=== PATIENT | female | born 1945 | race Caucasian/White ===

== ENCOUNTER 2017-03-27 21:40 | Inpatient (IN) | payer OTHER, BC ==
[~2017-03-27] VITALS: Ht 162.6 cm; Wt 81.6 kg
--- NOTE | ~2017-03-27 | HC ---
[facility] Elizabeth Ba[address] [address] CONSULTATION Name: REMIGIO MONTAGUE Room #: 310-P [facility] IN M.R.#: [id number] Admission: 03/28/17 Attend Phys: Herminio Wood MD Discharge: 03/29/17 Date of : 41 Report #: [id number] THIS REPORT FOR: //name// CC: Zacarias Wood REASON FOR CONSULTATION: End-stage renal disease. REASON FOR PRESENTATION: Shortness of breath. HISTORY OF PRESENT ILLNESS: The patient is a 72-year-old, who was maintained on dialysis with another group. She goes to dialysis every Wednesday, , and Wednesday with Dr. Omalley. She started to have some chest pain before her dialysis session yesterday. She localized the chest pain in the lower aspect of her chest wall. It was described as stabbing. This was associated with shortness of breath. She described that as 10. She tells me that she started on dialysis about 1-1/2 years ago, but she is not really sure, what is the underlying cause of her end-stage renal disease. She also reported that she has some cardiac history, but she is not clear on the details of her cardiac history. She is known to have COPD with a suprapubic catheter. 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 She is also having major issues with hearing on the right side and is maintained on thyroid medications. Looking back on her medical history, it does look like that the patient is diabetic and hypertensive. I am assuming that her kidney issues are related to her diabetes mellitus and hypertension. When she presented to the emergency room yesterday, she was found to have low potassium. She finished her full dialysis treatment. I was asked to manage her end-stage renal disease. MEDICATIONS: 1. Amlodipine. 2. Gabapentin. 3. Aspirin. 4. Simvastatin. 5. Lantus. 6. Levothyroxine. 7. Plavix. 8. Sevelamer. ALLERGIES: Numerous including ASPIRIN, AZTREONAM, CEPHALEXIN, HYDROCHLOROTHIAZIDE, HYDROMORPHONE, LEVOFLOXACIN, PENICILLIN, and SULFA. REVIEW OF SYSTEMS: CONSTITUTIONAL: No fever or chills. PULMONARY: Significant for shortness of breath. CARDIOVASCULAR: Significant for chest pain. GASTROINTESTINAL: No nausea or vomiting. GENITOURINARY: She has a suprapubic catheter. [address] [address] CONSULTATION Name: REMIGIO MONTAGUE Room #: 310-P [facility] IN ..#: [id number] Admission: 03/28/17 Attend Phys: Herminio Wood MD Discharge: 03/29/17 Date of : 41 Report #: [id number] SOCIAL HISTORY: No drug or alcohol abuse. She resides in her own facility. PHYSICAL EXAMINATION: GENERAL: She is alert, oriented, and hard of hearing. VITAL SIGNS: Blood pressure 146/75, respiratory rate 18, pulse rate is 76, temperature 36.6. HEAD AND NECK: No jugular venous distention. No bruit. No thyromegaly. CHEST: Decreased air entry bilaterally with crackles. CARDIOVASCULAR: No rub detected. ABDOMEN: Soft, nontender, with no hepatosplenomegaly. There is a suprapubic catheter. LOWER EXTREMITIES: Trace edema. LABORATORY DATA: Reviewed. Hemoglobin of 9.5. Labs from this morning revealed a sodium of 140, potassium of 2.9, BUN of 8, and creatinine of 2. Her lab values from yesterday showed a potassium of 2.9 and creatinine of 1.8. ASSESSMENT, IMPRESSION, AND PLAN: 1. Presumed end-stage renal disease, even though the values are not consistent with that. She does have very significant urine in her suprapubic catheter. 2. Diabetes mellitus. 3. Hypertension. 4. Hypokalemia. 5. Chest pain. Of unknown sources. 6. Hypothyroidism. PLAN: 1. Holding dialysis for now. 2. Following urine output. 3. We will try to get more details from her dialysis unit about her end-stage renal disease history. 4. She does have low potassium issues, and I will replete accordingly. 5. She received a dialysis treatment yesterday. She does not seem to be in any compromise from the pulmonary status. She uses oxygen at home, and she seems to be at her baseline. <ELECTRONICALLY SIGNED> By: Rodrick Vila MD 03/30/17 0607 0607 1248 Gulshan Montez MD /nt
--- NOTE | ~2017-03-27 | EKG ---
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 : 1945 Requested By: Sergio Caldera Order Number: [id number] MD: Javad Lopez Measurements Intervals [place] Rate: 90 P: 99 CT: 70 QRS: -17 QRSD: 107 T: 170 QT: 400 QTc: 490 Interpretive Statements Sinus rhythm Poor R wave progression Nonspecific ST and T wave abnormality no previous ECGs available for comparison Electronically Signed On 03-28-2017 11:01:23 CDT by Javad Lopez [email or web address] <ELECTRONICALLY SIGNED> By: Javad Lopez MD, [facility] 03/28/17 1101 46 46 Javad Lopez MD, [facility] /EPI
--- NOTE | ~2017-03-27 | 2DMMODE ---
[facility] [address] [employer] [facility] [place] [address] 2 D/M-MODE ECHOCARDIOGRAM Name: MONTAGUEREMIIGO Room #: 310-P [facility] IN ..#: [id number] Admission: 03/28/17 Attend Phys: Herminio Wood, Discharge: Date of : 41 Date of Service: 03/29/17 1109 Report #: [id number] THIS REPORT FOR: //name// APPROVED REPORT Study performed: 03/29/2017 08:33:50 EXAM: Comprehensive 2D, Doppler, and color-flow Echocardiogram Patient Location: Bedside Room #: 310 Other Information Study Quality: Good Indications Congestive Heart Failure COPD Diabetes 2D Dimensions RVDd: 41.93 mm LVEF(%): 27.68 (>50%) IVSd: 14.31 (7-11mm) LVOT Diam: 19.36 (18-24mm) LVDd: 49.36 mm PWd: 12.94 (7-11mm) Ascending Ao: 32.07 (22-36mm) LVDs: 42.99 (25-40mm) Aortic Root: 29.21 mm IVC: 17.00 mm Christina's LVEF: 27.68 % Volumes Left Atrial Volume (Systole) Single Plane 4CH: 68.55 mL Single Plane 2CH: 80.38 mL LA ESV Index: 42.00 mL/m2 Aortic Valve AoV Peak Jimmy.: 1.58 m/s AO Peak Gr.: 9.93 mmHg LVOT Max P.99 mmHg LVOT Max V: 0.86 m/s ESSIE Vmax: 1.61 cm2 Mitral Valve E/A Ratio: 1.2 MV Decel. Time: 156.41 ms MV E Max Jimmy.: 1.46 m/s MV A Jimmy.: 1.24 m/s [facility] [place] [address] 2 D/M-MODE ECHOCARDIOGRAM Name: REMIGIO MONTAGUE Room #: 310-P [facility] IN .R.#: [id number] Admission: 03/28/17 Attend Phys: Herminio Wood, Discharge: Date of : 41 Date of Service: 03/29/17 1109 Report #: [id number] MV PHT: 45.36 ms IVRT: 96.89 ms Pulmonary Valve PV Peak Jimmy.: 1.27 m/s PV Peak Gr.: 6.44 mmHg Pulmonary Vein P Vein S: 0.50 m/s P Vein A: 0.30 m/s P Vein D: 0.50 m/s P Vein A Dur.: 100.3 msec P Vein S/D Ratio: 1.00 Tricuspid Valve TR Peak Jimmy.: 3.61 m/s RAP Estimate: 10.00 mmHg TR Peak Gr.: 52.01 mmHg Left Ventricle The left ventricle is normal size. There is global hypokinesis of the left ventricle. Mild to moderate concentric left ventricular hypertrophy. Left ventricular ejection fraction is moderately mild-moderately reduced. LVEF is 40-45%. Moderate diastolic dysfunction is present (pseudonormal filling). Right Ventricle Right ventricle is dilated. The right ventricular systolic function is normal. Atria Left atrium is dilated. Right atrium is dilated. Aortic Valve Aortic valve is calcified, trileaflet. Trace aortic regurgitation. There is no aortic valvular stenosis. Mitral Valve Mild mitral annular calcification Mild to moderate mitral regurgitation. No evidence of mitral valve stenosis. Tricuspid Valve The tricuspid valve is normal in structure. Mild tricuspid regurgitation. Pulmonic Valve The pulmonary valve is normal in structure. Trace pulmonic regurgitation. [employer] [address] [address] 2 D/M-MODE ECHOCARDIOGRAM Name: REMIGIO MONTAGUE Leatha Room #: 310-P [facility] IN [facility]#: [id number] Admission: 03/28/17 Attend Phys: Herminio Wood, Discharge: Date of : 41 Date of Service: 03/29/17 1109 Report #: [id number] The aortic root is normal in size. IVC is normal in size and collapses <50% with inspiration. Pericardium There is no pericardial effusion. There is no pleural effusion. <Conclusion> Left ventricular ejection fraction is mild-moderately reduced. There is global hypokinesis of the left ventricle.LVEF is 40-45%. Both atria are dilated. Aortic valve is calcified, trileaflet. No aortic valvular stenosis. Mild mitral annular calcification Mild to moderate mitral regurgitation. Pumonary artery pressure of 55mmHg There is no pericardial effusion. <ELECTRONICALLY SIGNED> By: Javad Lopez MD, [facility] 03/29/17 1109 1109 1109 Javad Lopez MD, FACC /INF
--- NOTE | ~2017-03-27 | HC ---
[facility] Elizabeth Ba[address] [place] [address] CONSULTATION Name: REMIGIO MONTAGUE Room #: 310-P ADM IN M.R.#: [id number] Admission: 03/28/17 Attend Phys: Herminio Wood MD Discharge: Date of : 41 Report #: [id number] THIS REPORT FOR: //name// CC: Zacarias Wood DATE OF SERVICE: 03/28/2017 REASON FOR CONSULTATION: Shortness of breath. HISTORY OF PRESENT ILLNESS: The patient is a 72-year-old woman with a history of end-stage renal disease, on hemodialysis. She denies past cardiac history. She was recently discharged from rehabilitation about 6 days ago. Was at the rehabilitation center where she gained 20-30 pounds of fluid. Her daughter signed her out of rehabilitation and since then, efforts have been underway to remove excess fluid. Her daughter tells me that she is down about 8 pounds, but has ways to go. Yesterday, she developed shortness of breath, stabbing-type chest pain and shakiness during dialyisis. Her daughter thinks that she might have had a panic attack. She usually receives her care at [facility] and they were diverted to [facility]. Both the patient and her daughter, Amira Nicole, prefer not to have any specific diagnostic testing done at [place], but rather [facility] due to her long history and all of her records being at this hospital. Serial cardiac enzymes have been normal. She has been told of needing to wear oxygen, although does not do this consistently. There is no history of palpitations, near syncope or syncope. ALLERGIES: She is allergic to FIORINAL, KEFLEX, HYDROCHLOROTHIAZIDE, DILAUDID, LEVAQUIN, PENICILLINS. MEDICATIONS: Include insulin, amlodipine 5 mg daily, Wellbutrin SR 150 mg daily, Neurontin 300 mg twice daily, Seroquel 50 mg at night, allopurinol 100 mg daily, Imdur 60 mg daily, amitriptyline, aspirin 81 mg daily, simvastatin 20 mg daily, Plavix 75 mg daily, and vitamin D. PAST MEDICAL HISTORY: Medical records have been reviewed and include a history of COPD, reflux disease, hypothyroidism, diabetes, end-stage renal disease, herniorrhaphy. There is no history of congestive heart failure, no prior history of coronary stenting, no history of cardiomyopathy per her knowledge. SOCIAL HISTORY: She is exposed to secondhand smoke. She is a nonsmoker, nondrinker. FAMILY HISTORY: Father of Parkinson's, mom of old age. [address] [address] CONSULTATION Name: REMIGIO MONTAGUE Leatha Room #: 310-P [facility] IN M.R.#: [id number] Admission: 03/28/17 Attend Phys: Herminio Wood MD Discharge: Date of : 41 Report #: [id number] REVIEW OF SYSTEMS: All systems negative except as that noted above. PHYSICAL EXAMINATION: GENERAL: A pleasant woman. She is hard of hearing. VITAL SIGNS: Blood pressure is 156/78, heart rate of 80 and regular. She is afebrile. She is 5 feet 4 inches tall, 180 pounds. HEENT: There are neither xanthelasma, subcutaneous xanthomata, oral mucosal or digital cyanosis or kyphoscoliosis present. CHEST: Clear to auscultation and percussion. CARDIOVASCULAR: Regular rate and rhythm with normal S1, S2. There is a 2/6 systolic murmur at the left sternal border radiating widely. ABDOMEN: Soft and nontender. EXTREMITIES: Reveal 2+ pedal edema. Radial pulses are 2+. NEUROLOGIC: She is alert with a nonfocal exam. LABORATORY DATA: Creatinine is 2.0. Potassium 2.9. ProBNP of 41,000. Troponin levels are normal on 3 separate occasions. White count 6.6, hemoglobin 9, hematocrit 27, platelet count 227. Venous Doppler was negative for venous thrombosis. RADIOLOGICAL DATA: Chest x-ray demonstrates cardiomegaly, hiatal hernia. EKG sinus rhythm with LVH. IMPRESSION: 1. Congestive heart failure, probably acute on chronic diastolic heart failure. 2. End-stage renal disease, on hemodialysis. 3. Hypertension. 4. Diabetes. 5. Anemia. 6. Chronic obstructive pulmonary disease; chronic hypoxemic respiratory failure. RECOMMENDATIONS: 1. Serial cardiac enzymes have been normal. I believe that her symptoms are on the basis of volume overload and diastolic heart failure. 2. I agree with continuation of her pharmacologic regimen. The daughter reports all for testing and evaluation has been done at 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 3. Nephrology consultation. By: 1035 1450 Javad Lopez MD, [facility] /nt
[~2017-03-27 21:40] MED LIST: ALLOPURINOL 10100 M2 PO; AMITRIPTYLINE H50 M2 PO; BAYER CHEWABLE81 MG PO; COMBIVENT; IMDUR 60 MG TAB60 M1 PO; LANTUS100 UNIT/M SUBQ; NEURONTIN 300300 M1 PO; NORVASC10 MG PO; NOVOLOG100 UNIT/1 SUBQ; SEROQUEL 25 MG25 M1 PO; TRAMADOL 50 MG50 MG PO; UNITHROID75 MCG; WELLBUTRIN SR150 MG PO; ZOCOR20 MG PO
[2017-03-27 21:42] VITALS: BP 146/76
[2017-03-27] MEDS ORDERED: CLOPIDOGREL75 MG PO (21:50)
[2017-03-27] MEDS ORDERED: RENVELA800 MG PO (21:51)
[2017-03-27] MEDS ORDERED: VITAMIN D2000 UNIT PO (21:58)
[2017-03-27] MEDS ORDERED: VOLTAREN GEL 1100 G2 TOP (22:00)
[2017-03-27 22:26] LABS: ABSOLUTE NEUTROPHILS 5.1 thou/uL (1.4-8.2); BASOPHILS 0.4 % (0.0-2.0); EOSINOPHILS 0.6 % (0.0-3.0); HEMATOCRIT 27.1 % (37.0-47.0); HEMOGLOBIN 9.5 gm/dL (12.0-15.0); LYMPHOCYTES 14.4 % (24.0-44.0); MCH 35.6 pg (26.0-34.0); MCHC 35.2 g/dL (28.0-37.0); MCV 101.3 fL (80.0-100.0); MONOCYTES 7.1 % (1.0-8.0); PLATELET COUNT 227 thou/uL (150-400); POLYS 77.5 % (36.0-66.0); RBC 2.68 mil/uL (4.20-5.00); RDW 14.2 % (10.5-14.5); WBC 6.6 thou/uL (4.0-11.0)
[2017-03-27 22:28] LABS: MANUAL DIFF NO
[2017-03-27 22:44] LABS: ANION GAP 9 mmol/L (7-16); BUN 8 mg/dL (7-18); CALCIUM 8.5 mg/dL (8.5-10.1); CHLORIDE 102 mmol/L (98-107); CO2 28 mmol/L (21-32); CREATININE 1.8 mg/dL (0.6-1.0); GLUCOSE 126 mg/dL (74-106); SODIUM 139 mmol/L (136-145)
[2017-03-27 22:45] LABS: POTASSIUM 2.9 mmol/L (3.5-5.1)
[2017-03-27 22:52] LABS: TROPONIN-I < 0.04 ng/mL (<0.04-0.07)
[2017-03-27 23:18] LABS: NT-PRO BRAIN NAT PEPTIDE 41209 pg/mL (<300)
[2017-03-28 00:50] VITALS: BP 159/72
[2017-03-28 03:59] VITALS: BP 146/75
[2017-03-28 04:05] LABS: ALBUMIN 2.8 g/dL (3.4-5.0); ALKALINE PHOSPHATASE 80 U/L (46-116); ANION GAP 8 mmol/L (7-16); BUN 8 mg/dL (7-18); CHLORIDE 101 mmol/L (98-107); CHOLESTEROL 165 mg/dL (<200); CO2 32 mmol/L (21-32); DIRECT BILIRUBIN 0.1 mg/dL (<0.1-0.3); GLUCOSE 107 mg/dL (74-106); HDL CHOLESTEROL 80 mg/dL (>40); LDL CHOLESTEROL 73 mg/dL (<100); SGOT 20 U/L (15-37); SGPT 15 U/L (30-65); SODIUM 141 mmol/L (136-145); TC:HDL 2.1 Ratio (Not establshd); TOTAL BILIRUBIN 0.5 mg/dL (<0.1-1.0); TOTAL PROTEIN 6.4 g/dL (6.4-8.2); TRIGLYCERIDE 61 mg/dL (<150); TROPONIN-I < 0.04 ng/mL (<0.04-0.07); VLDL 12 mg/dL (<40)
[2017-03-28 04:23] LABS: POTASSIUM 2.9 mmol/L (3.5-5.1)
[2017-03-28 07:26] VITALS: BP 156/78
[2017-03-28] MEDS ORDERED: AGGRENOX 25 MG1 EACH PO (15:14)
[2017-03-28] MEDS ORDERED: PROAIR HFA8.5 GM INH (15:26)
[2017-03-28] MEDS ORDERED: CARVEDILOL12.5 MG PO (15:27)
[2017-03-28 16:39] VITALS: BP 131/70
[2017-03-28 19:41] VITALS: BP 125/62
[2017-03-29 04:16] VITALS: BP 129/73
[2017-03-29 07:53] LABS: ALBUMIN 2.8 g/dL (3.4-5.0); CREATININE 2.8 mg/dL (0.6-1.0); PHOSPHORUS 3.4 mg/dL (2.5-4.9); POTASSIUM 4.3 mmol/L (3.5-5.1)
[2017-03-29 08:34] VITALS: BP 159/85
[2017-03-29 08:40] LABS: CALCIUM 8.2 mg/dL (8.5-10.1); CREATININE 2.9 mg/dL (0.6-1.0); POTASSIUM 4.3 mmol/L (3.5-5.1)
[2017-03-29 14:23] VITALS: BP 159/85
[2017-03-29 14:24] VITALS: BP 159/85
== END 2017-03-29 16:50 | disposition home health service (06) | DRG 291 ==
LOC: ER 21:40 → 3N 03-28 00:22 → EROBS 03-28 00:22 → 3N 03-28 01:07
PROVIDERS: Emergency Medicine; Hospitalist; Internal Medicine; Nurse Practitioner Acute Care
DX: I13.2 Hypertensive heart and chronic kidney disease with heart failure and with stage 5 chronic kidney disease, or end stage renal disease (principal); N18.6 End stage renal disease; J96.11 Chronic respiratory failure with hypoxia; E11.22 Type 2 diabetes mellitus with diabetic chronic kidney disease; J44.9 Chronic obstructive pulmonary disease, unspecified; I50.9 Heart failure, unspecified; K21.9 Gastro-esophageal reflux disease without esophagitis; E03.9 Hypothyroidism, unspecified; E87.6 Hypokalemia; E87.70 Fluid overload, unspecified; D64.9 Anemia, unspecified; Z90.710 Acquired absence of both cervix and uterus; Z90.49 Acquired absence of other specified parts of digestive tract; Z99.81 Dependence on supplemental oxygen; Z79.82 Long term (current) use of aspirin; Z88.6 Allergy status to analgesic agent; Z88.2 Allergy status to sulfonamides; Z88.0 Allergy status to penicillin; Z88.1 Allergy status to other antibiotic agents; Z88.8 Allergy status to other drugs, medicaments and biological substances; Z79.899 Other long term (current) drug therapy; Z99.2 Dependence on renal dialysis; Z82.49 Family history of ischemic heart disease and other diseases of the circulatory system; Z82.0 Family history of epilepsy and other diseases of the nervous system
CPT/HCPCS: 10096

== ENCOUNTER 2017-06-18 14:46 | Emergency (ER) | payer OTHER, BC ==
[~2017-06-18] VITALS: Ht 162.6 cm; Wt 76.7 kg
[~2017-06-18 14:46] MED LIST changes: +AGGRENOX 25 MG1 EACH PO; +CARVEDILOL12.5 MG PO; +CLOPIDOGREL75 MG PO; +PROAIR HFA8.5 GM INH; +RENVELA800 MG PO; +VITAMIN D2000 UNIT PO; +VOLTAREN GEL 1100 G2 TOP
[2017-06-18] MEDS ORDERED: SENNA8.6 MG PO (16:05)
[2017-06-18] MEDS ORDERED: HYDROCODONE-AP1 EAC6 PO (16:05)
== END 2017-06-18 16:13 | disposition home or self-care (01) ==
LOC: ER 14:46
DX: M25.551 Pain in right hip (principal); R07.81 Pleurodynia; J44.9 Chronic obstructive pulmonary disease, unspecified; K21.9 Gastro-esophageal reflux disease without esophagitis; E03.9 Hypothyroidism, unspecified; I13.2 Hypertensive heart and chronic kidney disease with heart failure and with stage 5 chronic kidney disease, or end stage renal disease; E11.22 Type 2 diabetes mellitus with diabetic chronic kidney disease; N18.6 End stage renal disease; I50.9 Heart failure, unspecified; Z79.4 Long term (current) use of insulin; Z90.710 Acquired absence of both cervix and uterus; Z90.49 Acquired absence of other specified parts of digestive tract; Z86.73 Personal history of transient ischemic attack (TIA), and cerebral infarction without residual deficits; Z88.8 Allergy status to other drugs, medicaments and biological substances; Z88.1 Allergy status to other antibiotic agents; Z88.0 Allergy status to penicillin; Z88.2 Allergy status to sulfonamides; W01.0XXA Fall on same level from slipping, tripping and stumbling without subsequent striking against object, initial encounter; Y93.89 Activity, other specified; Y92.89 Other specified places as the place of occurrence of the external cause; Y99.8 Other external cause status

== ENCOUNTER 2018-01-01 10:47 | Inpatient (IN) | payer OTHER ==
[2018-01-01] VITALS (10 sets, daily range): BP systolic 104–154; BP diastolic 44–88
[~2018-01-01] VITALS: Ht 162.6 cm; Wt 76.6 kg
--- NOTE | ~2018-01-01 | HC ---
[facility] Elizabeth [place] [address] CONSULTATION Name: REMIGIO MONTAGUE Room #: 218-P ADM IN M.R.#: [id number] Admission: 01/01/18 Attend Phys: Carin Hummel Discharge: Date of : 41 Report #: [id number] THIS REPORT FOR: //name// CC: Zacarias Hummel REASON FOR CONSULTATION: End-stage renal disease. HISTORY OF PRESENT ILLNESS: A 72-year-old with past medical history of end-stage renal disease, maintained on dialysis, she goes to a unit in [place], followed by Dr. Omalley. She was supposed to be dialyzed yesterday after being discharged from the [facility]; however, she could not make it. She was over sedated, recently been prescribed tramadol. Family could not wake her up and brought her for further evaluation and management. She is known to have long-standing diabetes mellitus and hypertensive contributing to end-stage renal disease. I am being asked to evaluate her dialysis needs. She was able to provide me with the detail of the history today and she seems to be back to her baseline. ALLERGIES: Numerous and listed in the medical records. PAST MEDICAL HISTORY: 1. End-stage renal disease. 2. Diabetes mellitus. 3. Hypertension. 4. Left leg surgery. 5. Suprapubic catheter. 6. Deafness of the left ear. 7. Hypothyroidism. 8. Right arm AV graft. 9. Hysterectomy. 10. Cholecystectomy. 11. Jaw surgery 12. TIA. FAMILY HISTORY: Heart disease. SOCIAL HISTORY: She was in the detention facility of [facility] and was discharged home. No drug or alcohol abuse. REVIEW OF SYSTEMS: GENERAL: Significant for mental status changes. CARDIOVASCULAR: No chest pain, but significant for shortness of breath. PULMONARY: Shortness of breath. GASTROINTESTINAL: No nausea or vomiting. SKIN: No rash or ulcerations. [facility] [address] [place] [address] CONSULTATION Name: REMIGIO MONTAGUE Room #: 218-P [facility] IN [facility].#: [id number] Admission: 01/01/18 Attend Phys: Carin Hummel Discharge: Date of : 41 Report #: [id number] PHYSICAL EXAMINATION: GENERAL: She is alert, oriented x 3. VITAL SIGNS: Blood pressure 126/57. She is afebrile, bedside pulse ox is 98. HEAD AND NECK: No jugular venous distention. CHEST: Bilateral crackles. CARDIOVASCULAR: Regular, with no rub. ABDOMEN: Soft, nontender. LOWER EXTREMITIES: No edema. LABORATORY DATA: Laboratory values reviewed. Hemoglobin 8.4. Sodium 135, BUN 63, creatinine 3.9, phosphorus 6. Head CT negative. Chest x-ray consistent with pulmonary edema. ASSESSMENT, IMPRESSION AND PLAN: 1. End-stage renal disease. 2. Narcotic overdose. 3. Bilateral pulmonary infiltrates consistent with pulmonary edema. 4. Diabetes mellitus. 5. Hypertension. 6. We will aim for usual dialysis treatment tomorrow. She is back to her usual dialysis and is stable from my side to be discharged after dialysis tomorrow. <ELECTRONICALLY SIGNED> By: Gulshan Montez MD 01/03/1848 5 Gulshan Montez MD /nt
--- NOTE | ~2018-01-01 | EKG ---
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 : 1945 Requested By: Husam Hylton Order Number: [id number] MD: Javad Lopez Measurements Intervals [place] Rate: 72 P: 50 PA: 184 QRS: -25 QRSD: 102 T: 176 QT: 443 QTc: 485 Interpretive Statements Sinus rhythm LVH with secondary repolarization abnormality Compared to ECG 03/27/2017 21:47:20 no significant change was found Electronically Signed On 01-02-2018 14:03:02 CDT by Javad Lopez [email or web address] <ELECTRONICALLY SIGNED> By: Javad Lopez MD, [facility] 01/02/18 1403 08 Javad Lopez MD, [facility] /EPI
[~2018-01-01 10:47] MED LIST changes: +HYDROCODONE-AP1 EAC6 PO; +SENNA8.6 MG PO
[2018-01-01 11:27] LABS: ABSOLUTE NEUTROPHILS 4.9 thou/uL (1.4-8.2); BASOPHILS 0.8 % (0.0-2.0); HEMATOCRIT 24.3 % (37.0-47.0); HEMOGLOBIN 8.4 gm/dL (12.0-15.0); LYMPHOCYTES 8.6 % (24.0-44.0); MCHC 34.6 g/dL (28.0-37.0); MCV 101.2 fL (80.0-100.0); MONOCYTES 7.8 % (1.0-8.0); PLATELET COUNT 248 thou/uL (150-400); POLYS 76.8 % (36.0-66.0); RDW 13.1 % (10.5-14.5); WBC 6.4 thou/uL (4.0-11.0)
[2018-01-01 11:29] LABS: BE(vivo) -0.3 mmol/L (-2 to +3); PCO2 43.7 mmHg (35.0-45.0); PO2 121.5 mmHg (80.0-100.0); pH 7.375 (7.360-7.450); sO2 98.3 % (92.0-98.0)
[2018-01-01 11:34] LABS: ANION GAP 9 mmol/L (7-16); BUN 65 mg/dL (7-18); CALCIUM 8.6 mg/dL (8.5-10.1); CHLORIDE 98 mmol/L (98-107); CO2 24 mmol/L (21-32); CREATININE 3.7 mg/dL (0.6-1.0); GLUCOSE 194 mg/dL (74-106); POTASSIUM 5.5 mmol/L (3.5-5.1); SODIUM 131 mmol/L (136-145)
[2018-01-01 11:42] LABS: ALBUMIN 2.9 g/dL (3.4-5.0); SALICYLATE < 2.8 mg/dL (2.8-20.0); SGOT 20 U/L (15-37); SGPT 17 U/L (30-65); TOTAL BILIRUBIN 0.3 mg/dL (<0.1-1.0); TOTAL PROTEIN 7.4 g/dL (6.4-8.2); TROPONIN-I < 0.04 ng/mL (<0.06)
[2018-01-01 13:12] LABS: URINE BILIRUBIN NEGATIVE (Negative); URINE BLOOD NEGATIVE (Negative); URINE CLARITY CLEAR; URINE COLOR YELLOW; URINE GLUCOSE-RANDOM* NEGATIVE (Negative); URINE KETONES NEGATIVE (Negative); URINE LEUKOCYTES-REFLEX 2+ (Negative); URINE NITRITE-REFLEX POSITIVE (Negative); URINE PROTEIN (DIPSTICK) 1+ (Negative); URINE SPECIFIC GRAVITY 1.015 (1.005-1.035); URINE UROBILINOGEN 0.2 E.U./dl (0.2-1.0)
[2018-01-01 13:21] LABS: AMP/METHAMP Negative (Negative); BARBITURATES Negative (Negative); BENZODIAZEPINES Negative (Negative); COCAINE Negative (Negative); METHADONE Negative (Negative); OPIATES Negative (Negative); PCP Negative (Negative); SQUAMOUS 0-3 Few /LPF (0-3)
[2018-01-01 13:22] LABS: BACTERIA-REFLEX >30 Many /HPF (None Seen); CASTS None Seen /LPF (None Seen); CRYSTALS None Seen /LPF (None Seen); URINE RBC None Seen /HPF (0-2); URINE WBC-REFLEX 6-15 Few /HPF (0-5)
[2018-01-02] VITALS (13 sets, daily range): BP systolic 96–143; BP diastolic 44–69
[2018-01-02 05:10] LABS: ALBUMIN 2.7 g/dL (3.4-5.0); CALCIUM 8.5 mg/dL (8.5-10.1); CREATININE 3.9 mg/dL (0.6-1.0)
[2018-01-03 04:50] VITALS: BP 140/47
[2018-01-03 08:00] VITALS: BP 131/64
[2018-01-03 11:18] VITALS: BP 131/64
[2018-01-03 12:00] VITALS: BP 131/65
[2018-01-03 12:23] VITALS: BP 131/64
[2018-01-03 13:07] LABS: HEP B SURFACE Ab(ANTI-HBS Non Reactive (()); HEPATITIS B SURFACE AG Negative (Negative)
[2018-01-03 14:00] VITALS: BP 131/65
== END 2018-01-03 17:23 | disposition home or self-care (01) | DRG 91 ==
LOC: ER 10:47 → EROBS 12:57 → ICU 15:22 → 2N 01-02 09:52 → ENTRNSPT 01-03 17:05 → 2N 01-03 17:23
PROVIDERS: Emergency Medicine; Hospitalist
PROC: 5A1D70Z Performance of Urinary Filtration, Intermittent, Less than 6 Hours Per Day (ICD-10-PCS; principal; 2018-01-02)
PROC: 5A1D70Z Performance of Urinary Filtration, Intermittent, Less than 6 Hours Per Day (ICD-10-PCS; 2018-01-03)
DX: G92 Toxic encephalopathy (principal); J18.9 Pneumonia, unspecified organism; N18.6 End stage renal disease; R40.20 Unspecified coma; I13.2 Hypertensive heart and chronic kidney disease with heart failure and with stage 5 chronic kidney disease, or end stage renal disease; I50.9 Heart failure, unspecified; J44.9 Chronic obstructive pulmonary disease, unspecified; Y95 Nosocomial condition; K21.9 Gastro-esophageal reflux disease without esophagitis; H91.92 Unspecified hearing loss, left ear; E03.9 Hypothyroidism, unspecified; E11.22 Type 2 diabetes mellitus with diabetic chronic kidney disease; T40.4X5A Adverse effect of other synthetic narcotics, initial encounter; Y92.89 Other specified places as the place of occurrence of the external cause; Z86.73 Personal history of transient ischemic attack (TIA), and cerebral infarction without residual deficits; Z90.49 Acquired absence of other specified parts of digestive tract; Z90.710 Acquired absence of both cervix and uterus; Z79.02 Long term (current) use of antithrombotics/antiplatelets; Z99.2 Dependence on renal dialysis; Z79.82 Long term (current) use of aspirin; Z79.4 Long term (current) use of insulin; Z79.899 Other long term (current) drug therapy; Z88.0 Allergy status to penicillin; Z88.2 Allergy status to sulfonamides; Z88.8 Allergy status to other drugs, medicaments and biological substances; Z82.49 Family history of ischemic heart disease and other diseases of the circulatory system
CPT/HCPCS: 10081; 10203; 32100

== ENCOUNTER 2018-04-18 11:19 | Inpatient (IN) | payer OTHER ==
[~2018-04-18] VITALS: Ht 162.6 cm; Wt 78.5 kg
--- NOTE | ~2018-04-18 | PATH ---
[facility] [address] [place] [address] PATHOLOGY RPT PROCEDURE Name: NANCY PANDEY Room #: 457-P [facility] IN M.R.#: [id number] Admission: 04/18/18 Date of : 41 Discharge: 04/26/18 Report #: [id number] Path Case #: [id number] [facility] Accession Number: [id number] . 01 Material submitted: . PART A: DISTAL ESOPHAGEAL BIOPSY PART B: ANTRAL BIOPSY . 01 Clinical history: . Pre-OP DX: Dysphagia Post-OP DX: Hiata hernia, gastritis, dilated esophagus . 02 Diagnosis: A. Tissue designated as "distal esophageal rule out Mcmanus's, endoscopic biopsy: - Gastric cardia-type mucosa with no significant diagnostic abnormalities present. . B. Tissue designated as "antrum rule out H. pylori", endoscopic biopsy: - Few fragments of gastric mucosa with no significant diagnostic abnormalities present. - Two fragments of gastroesophageal mucosa (squamous mucosa and gastric cardia-type mucosa) showing mild chronic inflammation (please see comment). - Negative for intestinal metaplasia or dysplasia. - Negative for Helicobacter pylori (properly controlled immunohistochemical stain performed). [facility]/04/26/2018 . 02 Comment: The fragments lined by squamous mucosa and gastric cardia-type mucosa are compatible with those of "distal esophagus". Mild chronic inflammation as well as reactive metaplastic changes are identified within these fragments; however, well defined intestinal metaplasia or dysplasia are not identified. The fragments submitted as "distal esophageal" show gastric mucosal fragments only. Please correlate clinically and with endoscopic findings for sampling regarding these biopsy tissues. (IUV:pit 04/26/2018) . 02 Electronically signed: . Vani Viveros MD, Pathologist NPI- [id number] . 01 Gross description: . A. Received in formalin labeled "Nancy Pandey, distal esophageal BX, rule out Mcmanus's," is a single segment of seaman soft tissue measuring 0.4 cm in maximum dimension. The specimen is [place] [address] PATHOLOGY RPT PROCEDURE Name: NANCY PANDEY Room #: 457-P [facility] IN M.R.#: [id number] Admission: 04/18/18 Date of : 41 Discharge: 04/26/18 Report #: [id number] Path Case #: [id number] A1. . B. Received in formalin labeled "Pandey, Nancy, antral BX, rule out H. pylori," are 3 segments of seaman soft tissue measuring 0.9 x 0.7 x 0.3 cm in aggregate dimensions and ranging from 0.3 to 0.4 cm in maximum dimension. The specimen is submitted entirely in cassette B1. (TSD; 04/22/2018) TOB/TOB . 02 Pathologist provided ICD-10: K29.50, R13.10 . 02 CPT . 480784, 155059, M00444 Performed at: [address], [place] [id number] MD [address] MD Phone: [phone] Performed at: [address] [id number] MD Vani Viveros MD Phone: [phone]
--- NOTE | ~2018-04-18 | EKG ---
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 : 1945 Requested By: Alvarado Bradford Order Number: [id number] MD: Eddie Perez Measurements Intervals [place] Rate: 74 P: 49 [place]: 193 QRS: -19 QRSD: 100 T: 196 QT: 408 QTc: 453 Interpretive Statements Sinus rhythm LVH with secondary repolarization abnormality Compared to ECG 04/18/2018 11:27:23 Early repolarization now present Possible ischemia no longer present Electronically Signed On 04-23-2018 11:03:06 CDT by Eddie Perez [email or web address] <ELECTRONICALLY SIGNED> By: Eddie Perez MD 04/23/18 1103 1247 1247 Eddie Perez MD /EPI
--- NOTE | ~2018-04-18 | EKG ---
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 : 1945 Requested By: Magaly Zarco Order Number: [id number] MD: Javad Lopez Measurements Intervals [place] Rate: 67 P: 40 [place]: 189 QRS: -25 QRSD: 109 T: 173 QT: 469 QTc: 495 Interpretive Statements Sinus rhythm Probable left atrial enlargement LVH w/ repol abnormalities, possible ischemia Compared to ECG 01/01/2018 11:09:46 Anterior T wave abnormality is more pronounced Electronically Signed On 04-18-2018 15:39:00 CDT by Javad Lopez [email or web address] <ELECTRONICALLY SIGNED> By: Javad Lopez MD, [facility] 04/18/18 1539 1127 1127 Javad Lopez MD, [facility] /EPI
--- NOTE | ~2018-04-18 | HC ---
[facility] Elizabeth Ba[address] [place] [address] CONSULTATION Name: REMIGIO MONTAGUE Room #: 457-P [facility] IN M.R.#: [id number] Admission: 04/18/18 Attend Phys: Jose Cook MD Discharge: Date of : 41 Report #: [id number] THIS REPORT FOR: //name// CC: Zacarias Cook REASON FOR PRESENTATION: Not feeling well, cold symptoms. HISTORY OF PRESENT ILLNESS: A 73-year-old with past medical history of end-stage renal disease due to diabetes mellitus and hypertension. She reported to the Emergency Room, complaining of weakness and not feeling well. She also reported upper respiratory tract infection symptoms with some weird sensation in her throat. She stated that she has been having also chest pain. Apparently, the patient has been hospitalized at another facility and was discharged from that hospital yesterday. She continues to have those symptoms and presented for further evaluation and management. She describes central chest pain with occasional shortness of breath. No nausea or vomiting. No fever or chills. She is a dialysis patient with another group and I am being consulted to manage her end-stage renal disease issues. PAST MEDICAL HISTORY: 1. End-stage renal disease, maintained on dialysis with another group. 2. Diabetes mellitus. 3. Hypertension. 4. Suprapubic catheter. 5. Deafness. 6. Hypothyroidism. 7. Right AV graft. 8. TIA. 9. Cholecystectomy. 10. Hysterectomy. 11. End-stage renal disease, maintained on dialysis. FAMILY HISTORY: Significant for heart disease. SOCIAL HISTORY: She denies drug or alcohol abuse. REVIEW OF SYSTEMS: GENERAL: Significant for not feeling well. CARDIOVASCULAR: Chest pain. PULMONARY: No cough or hemoptysis, but she did have some shortness of breath. SKIN: No rash or lacerations. GASTROINTESTINAL: No nausea or vomiting. MEDICATIONS: Currently, the patient is maintained on hydralazine, isosorbide, carvedilol, amlodipine, tramadol, gabapentin, amitriptyline, insulin, and allopurinol. [address] [address] CONSULTATION Name: MONTAGUESRINIVASREMIGIO Leatha Room #: 457-P [facility] IN ..#: [id number] Admission: 04/18/18 Attend Phys: Jose Cook MD Discharge: Date of : 41 Report #: [id number] PHYSICAL EXAMINATION: GENERAL: Alert, oriented, no apparent distress. VITAL SIGNS: Temperature 36.9, pulse 70, respiratory rate 18, blood pressure 145/78. HEAD AND NECK: No jugular venous distention, no bruit, no thyromegaly. CHEST: Clear to auscultation bilaterally. CARDIOVASCULAR: Regular with no rub detected. ABDOMEN: Soft, nontender with no hepatosplenomegaly. EXTREMITIES: Lower extremity with no edema. Intact peripheral pulses. LABORATORY DATA: Reviewed. Sodium is on the low side at 124. BUN is 42, creatinine is 4.2. White blood cell count 7.2. Chest x-ray reviewed, no acute cardiopulmonary process. ASSESSMENT AND PLAN: 1. End-stage renal disease. 2. Diabetes mellitus. 3. Hypertension. 4. Weakness. 5. Upper respiratory tract infection symptoms. 6. We will initiate the patient back on her usual hemodialysis every Wednesday, and Wednesday. We will defer the management of her other issues to the admitting team. To me, she seems to be stable to go home after dialysis today. <ELECTRONICALLY SIGNED> By: Gulshan Montez MD 04/21/1807 0739 Gulshan Montez MD /nt
[2018-04-18 11:20] VITALS: BP 120/60
[2018-04-18] MEDS ORDERED: PLAVIX 75 MG TA75 M1 PO (12:45)
[2018-04-18] MEDS ORDERED: SEROQUEL 25 MG25 M1 PO (12:47)
[2018-04-18] MEDS ORDERED: QUETIAPINE FUM100 MG PO (12:47)
[2018-04-18] MEDS ORDERED: FISH OIL 1,001000 M2 PO (12:48)
[2018-04-18] MEDS ORDERED: HYDRALAZINE 10M10 MG PO (12:48)
[2018-04-18] MEDS ORDERED: AMITRIPTYLINE100 MG PO (12:48)
[2018-04-18 13:38] LABS: URINE BILIRUBIN NEGATIVE (Negative); URINE BLOOD NEGATIVE (Negative); URINE CLARITY CLEAR; URINE COLOR YELLOW; URINE GLUCOSE-RANDOM* NEGATIVE (Negative); URINE KETONES NEGATIVE (Negative); URINE LEUKOCYTES 2+ (Negative); URINE NITRITE NEGATIVE (Negative); URINE PROTEIN (DIPSTICK) 1+ (Negative); URINE SPECIFIC GRAVITY <= 1.005 (1.005-1.035); URINE UROBILINOGEN 0.2 E.U./dl (0.2-1.0)
[2018-04-18 13:40] LABS: BACTERIA >30 Many /HPF (None Seen); SQUAMOUS 0-3 Few /LPF (0-3); URINE RBC None Seen /HPF (0-2); URINE WBC 6-15 Few /HPF (0-5)
[2018-04-18 13:41] LABS: CASTS None Seen /LPF (None Seen); CRYSTALS None Seen /LPF (None Seen)
[2018-04-18 13:41] LABS: ABSOLUTE NEUTROPHILS 6.4 thou/uL (1.4-8.2); BASOPHILS 0.7 % (0.0-2.0); EOSINOPHILS 0.9 % (0.0-3.0); HEMATOCRIT 28.4 % (37.0-47.0); HEMOGLOBIN 9.9 gm/dL (12.0-15.0); LYMPHOCYTES 10.8 % (24.0-44.0); MCHC 34.9 g/dL (28.0-37.0); MCV 97.3 fL (80.0-100.0); PLATELET COUNT 186 thou/uL (150-400); POLYS 82.6 % (36.0-66.0); RBC 2.91 mil/uL (4.20-5.00); RDW 14.4 % (10.5-14.5); WBC 7.8 thou/uL (4.0-11.0)
[2018-04-18 13:48] LABS: ANION GAP 4 mmol/L (7-16); BUN 38 mg/dL (7-18); CALCIUM 8.5 mg/dL (8.5-10.1); CHLORIDE 92 mmol/L (98-107); CO2 29 mmol/L (21-32); CREATININE 3.9 mg/dL (0.6-1.0); GLUCOSE 148 mg/dL (74-106); POTASSIUM 4.7 mmol/L (3.5-5.1); SODIUM 125 mmol/L (136-145)
[2018-04-18 13:57] LABS: TROPONIN-I <0.06 ng/mL (<0.06)
[2018-04-18 19:06] VITALS: BP 162/74
[2018-04-18 22:05] VITALS: BP 149/66
[2018-04-19 03:07] VITALS: BP 113/54
[2018-04-19 05:26] LABS: CALCIUM 8.4 mg/dL (8.5-10.1); CREATININE 4.2 mg/dL (0.6-1.0); POTASSIUM 4.5 mmol/L (3.5-5.1)
[2018-04-19 05:59] LABS: HEMOGLOBIN 10.5 gm/dL (12.0-15.0); MCH 34.1 pg (26.0-34.0); MCHC 35.2 g/dL (28.0-37.0); MCV 96.9 fL (80.0-100.0); RBC 3.1 mil/uL (4.20-5.00); RDW 14.2 % (10.5-14.5); WBC 7.2 thou/uL (4.0-11.0)
[2018-04-19 07:22] VITALS: BP 145/78
[2018-04-19 16:43] VITALS: BP 104/44
[2018-04-19 19:31] VITALS: BP 120/57
[2018-04-20 03:25] VITALS: BP 136/55
[2018-04-20 08:38] VITALS: BP 111/57
[2018-04-20 16:17] VITALS: BP 170/78
[2018-04-20 19:26] VITALS: BP 137/62
[2018-04-21 04:15] VITALS: BP 165/78
[2018-04-21 05:42] LABS: ABSOLUTE NEUTROPHILS 4.5 thou/uL (1.4-8.2); BASOPHILS 0.5 % (0.0-2.0); EOSINOPHILS 3.1 % (0.0-3.0); HEMATOCRIT 28.8 % (37.0-47.0); HEMOGLOBIN 10.3 gm/dL (12.0-15.0); LYMPHOCYTES 17.9 % (24.0-44.0); MCH 34.3 pg (26.0-34.0); MCHC 35.5 g/dL (28.0-37.0); MCV 96.5 fL (80.0-100.0); MONOCYTES 7.6 % (1.0-8.0); PLATELET COUNT 213 thou/uL (150-400); POLYS 70.9 % (36.0-66.0); RBC 2.99 mil/uL (4.20-5.00); RDW 13.6 % (10.5-14.5); WBC 6.3 thou/uL (4.0-11.0)
[2018-04-21 05:54] LABS: CALCIUM 8.3 mg/dL (8.5-10.1); CREATININE 3.8 mg/dL (0.6-1.0); POTASSIUM 4.9 mmol/L (3.5-5.1)
[2018-04-21 08:31] VITALS: BP 142/64
[2018-04-21 16:27] VITALS: BP 136/49
[2018-04-22 04:15] VITALS: BP 128/51
[2018-04-22 06:01] LABS: ABSOLUTE NEUTROPHILS 3.9 thou/uL (1.4-8.2); BASOPHILS 0.8 % (0.0-2.0); EOSINOPHILS 1.4 % (0.0-3.0); HEMATOCRIT 29.1 % (37.0-47.0); HEMOGLOBIN 10.5 gm/dL (12.0-15.0); LYMPHOCYTES 13.1 % (24.0-44.0); MCH 34.9 pg (26.0-34.0); MCV 96.8 fL (80.0-100.0); MONOCYTES 9.5 % (1.0-8.0); PLATELET COUNT 206 thou/uL (150-400); POLYS 75.2 % (36.0-66.0); RDW 13.6 % (10.5-14.5); WBC 5.2 thou/uL (4.0-11.0)
[2018-04-22 06:13] LABS: CALCIUM 8.3 mg/dL (8.5-10.1); POTASSIUM 4.7 mmol/L (3.5-5.1)
[2018-04-22 06:14] LABS: CREATININE 2.4 mg/dL (0.6-1.0)
[2018-04-22 06:17] LABS: ALBUMIN 2.7 g/dL (3.4-5.0); DIRECT BILIRUBIN 0.1 mg/dL (<0.1-0.3); TOTAL BILIRUBIN 0.3 mg/dL (<0.1-1.0); TOTAL PROTEIN 6.9 g/dL (6.4-8.2)
[2018-04-22 07:21] VITALS: BP 147/62
[2018-04-22 16:05] VITALS: BP 146/61
[2018-04-22 20:15] VITALS: BP 158/67
[2018-04-23 05:04] VITALS: BP 145/71
[2018-04-23 08:38] VITALS: BP 135/66
[2018-04-23 16:21] VITALS: BP 153/69
[2018-04-24 05:01] VITALS: BP 130/49
[2018-04-24 08:41] VITALS: BP 120/47
[2018-04-24 15:56] VITALS: BP 134/69
[2018-04-24 19:05] VITALS: BP 147/66
[2018-04-25 03:20] VITALS: BP 150/69
[2018-04-25 06:12] LABS: ABSOLUTE NEUTROPHILS 5.8 thou/uL (1.4-8.2); BASOPHILS 0.6 % (0.0-2.0); EOSINOPHILS 2.4 % (0.0-3.0); HEMATOCRIT 31.4 % (37.0-47.0); LYMPHOCYTES 10.5 % (24.0-44.0); MCV 97.1 fL (80.0-100.0); MONOCYTES 5.7 % (1.0-8.0); PLATELET COUNT 220 thou/uL (150-400); POLYS 80.8 % (36.0-66.0); RBC 3.23 mil/uL (4.20-5.00); WBC 7.2 thou/uL (4.0-11.0)
[2018-04-25 06:21] LABS: CALCIUM 8.4 mg/dL (8.5-10.1); MAGNESIUM 1.6 mg/dL (1.8-2.4); POTASSIUM 4.5 mmol/L (3.5-5.1)
[2018-04-25 07:18] VITALS: BP 129/57
[2018-04-25] MEDS ORDERED: CIPRO250 M1 PO (13:18)
[2018-04-25 16:41] VITALS: BP 147/59
[2018-04-25 19:35] VITALS: BP 144/66
[2018-04-26 04:00] VITALS: BP 131/59
== END 2018-04-26 16:43 | DRG 291 ==
LOC: ER 11:19 → EROBS 13:53 → 4W 13:53
PROVIDERS: Emergency Medicine; Hospitalist; Internal Medicine; Internal Medicine Gastroenterology
PROC: 5A1D70Z Performance of Urinary Filtration, Intermittent, Less than 6 Hours Per Day (ICD-10-PCS; principal; 2018-04-19)
PROC: 5A1D70Z Performance of Urinary Filtration, Intermittent, Less than 6 Hours Per Day (ICD-10-PCS; 2018-04-21)
PROC: 0DB68ZX Excision of Stomach, Via Natural or Artificial Opening Endoscopic, Diagnostic (ICD-10-PCS; 2018-04-22)
PROC: 0DB58ZX Excision of Esophagus, Via Natural or Artificial Opening Endoscopic, Diagnostic (ICD-10-PCS; 2018-04-22)
PROC: 0D758ZZ Dilation of Esophagus, Via Natural or Artificial Opening Endoscopic (ICD-10-PCS; 2018-04-22)
PROC: 5A1D70Z Performance of Urinary Filtration, Intermittent, Less than 6 Hours Per Day (ICD-10-PCS; 2018-04-23)
PROC: 5A1D70Z Performance of Urinary Filtration, Intermittent, Less than 6 Hours Per Day (ICD-10-PCS; 2018-04-26)
DX: I13.2 Hypertensive heart and chronic kidney disease with heart failure and with stage 5 chronic kidney disease, or end stage renal disease (principal); G92 Toxic encephalopathy; N18.6 End stage renal disease; N39.0 Urinary tract infection, site not specified; E87.1 Hypo-osmolality and hyponatremia; I69.354 Hemiplegia and hemiparesis following cerebral infarction affecting left non-dominant side; I50.9 Heart failure, unspecified; J44.9 Chronic obstructive pulmonary disease, unspecified; J02.9 Acute pharyngitis, unspecified; R29.6 Repeated falls; K21.9 Gastro-esophageal reflux disease without esophagitis; H91.92 Unspecified hearing loss, left ear; D63.8 Anemia in other chronic diseases classified elsewhere; R26.9 Unspecified abnormalities of gait and mobility; E11.42 Type 2 diabetes mellitus with diabetic polyneuropathy; K22.8 Other specified diseases of esophagus; K44.9 Diaphragmatic hernia without obstruction or gangrene; K29.70 Gastritis, unspecified, without bleeding; E03.9 Hypothyroidism, unspecified; E78.5 Hyperlipidemia, unspecified; E11.22 Type 2 diabetes mellitus with diabetic chronic kidney disease; Z90.49 Acquired absence of other specified parts of digestive tract; Z90.710 Acquired absence of both cervix and uterus; Z79.4 Long term (current) use of insulin; Z79.02 Long term (current) use of antithrombotics/antiplatelets; Z79.899 Other long term (current) drug therapy; Z88.1 Allergy status to other antibiotic agents; Z88.0 Allergy status to penicillin; Z88.2 Allergy status to sulfonamides; Z88.8 Allergy status to other drugs, medicaments and biological substances; Z82.49 Family history of ischemic heart disease and other diseases of the circulatory system; Z82.0 Family history of epilepsy and other diseases of the nervous system
CPT/HCPCS: 10040; 10045; 32100; 62110; 62900; 70005